=== PATIENT | male | born 1980 | race American Indian/Alaskan Native ===

== ENCOUNTER 2016-09-26 03:27 | Emergency (ER) | payer OTHER ==
[2016-09-26 04:29] LABS: Basophils % (Auto) 0.5 % (0.0-1.8); Eosinophils % (Auto) 1.3 % (0.0-4.3); Hematocrit 46.5 % (35.5-45.6); Hemoglobin 15.6 gm/dl (11.8-15.2); Mean Corpuscular HGB Conc 34 % (32-34); Mean Corpuscular Hemoglobin 31 pg (28-32); Mean Corpuscular Volume 92 fl (84-94); Platelet Count 350 K/mm3 (140-440); Red Blood Count 5.04 M/mm3 (3.65-5.03); Red Cell Distribution Width 13.2 % (13.2-15.2); White Blood Count 8.4 K/mm3 (4.5-11.0)
[2016-09-26 04:43] LABS: Anion Gap 21 mmol/L; BUN/Creatinine Ratio 28.46; Blood Urea Nitrogen 37 mg/dL (9-20); Carbon Dioxide 25 mmol/L (22-30); Chloride 95.6 mmol/L (98-107); Glucose 108 mg/dL (75-100); Potassium 4.7 mmol/L (3.6-5.0); Sodium 137 mmol/L (137-145)
[2016-09-26 12:07] LABS: Urine Drugs of Abuse Note Disclamer
[2016-09-26 12:20] LABS: Bilirubin,Urine NEG (Negative); Blood,Urine NEG (Negative); Ketones,Urine 20 mg/dL (Negative); Leukocyte Esterase,Urine NEG (Negative); Nitrite,Urine NEG (Negative); Protein,Urine <15 mg/dL mg/dL (Negative); Urobilinogen,Urine < 2.0 mg/dL (<2.0)
--- NOTE | 2016-09-26 14:47 | Emergency Department Report ---
ED Psych HPI - General Chief Complaint: Psych Stated Complaint: INSOMNIA/AMS Time Seen by Provider: 09/26/16 10:56 Source: patient, family Mode of arrival: Ambulatory - History of Present Illness Complaint: altered mental status -: Gradual, days(s) Associated Psychiatric Symptoms: racing thoughts, visual hallucinations, delusions, other (liane) History of same: No Quality: getting worse Improves With: none Worsens With: none Context: significant life stressor Associated Symptoms: insomnia. denies: confusion, headache, shortness of breath , nausea, vomiting, syncope Treatments Prior to Arrival: placed on mental he - Related Data Home Medications Medication Instructions Recorded Confirmed Last Taken No Known Home Medications [No 09/26/16 09/26/16 Unknown Reported Home Medications] Allergies Allergy/AdvReac Type Severity Reaction Status Date / Time No Known Allergies Allergy Verified 09/26/16 04:05 ED Review of Systems ROS: Stated complaint: INSOMNIA/AMS Other details as noted in HPI Other: GENERAL: No weight change, fatigue, weakness, fever, chills, or night sweats SKIN: No changes in skin or hair, no itching, no rashes, no jaundice HEAD: No trauma, headache, or visual changes EYES: No blurriness, tearing, itching, acute visual loss, conjunctival discoloration, or scleral icterus EARS: No hearing loss, tinnitus, vertigo, or earache NOSE: No rhinorrhea, stuffiness, sneezing, itching, or epistaxis MOUTH: No bleeding gums, hoarseness, sore throat, or swelling CARDIAC: No new murmur, chest pain, palpitations, dyspnea on exertion, orthopnea , PND, or edema RESPIRATORY: No shortness of breath, wheeze, cough, sputum production, hemoptysis, pneumonia, asthma, bronchitis, or emphysema GI: No change in appetite, nausea, vomiting, dysphagia, change in bowel frequency, diarrhea, constipation, bleeding, hematemesis, melena, hematochezia, or abdominal pain URINARY: No frequency, urgency, polyuria, dysuria, hematuria, or incontinence MUSCULOSKELETAL: No muscle weakness, joint stiffness, decrease in range of motion, redness, swelling, tenderness NEUROLOGIC: No loss of sensation, numbness, tingling, tremors, weakness, paralysis, seizures HEMATOLOGIC: No anemia, easy bruising, bleeding, petechiae, or purpura ENDOCRINE: No hot or cold intolerance, sweating, polyuria, polydipsia or, polyphagia no thyroid problems PSYCHIATRIC: Liane, paranoia, hallucinations visual ED Past Medical Hx - Past Medical History Previous Medical History?: Yes - Surgical History Past Surgical History?: No - Social History Smoking Status: Current Every Day Smoker Substance Use Type: None - Medications Home Medications: Home Medications Medication Instructions Recorded Confirmed Last Taken Type No Known Home Medications [No 09/26/16 09/26/16 Unknown History Reported Home Medications] ED Physical Exam - General Limitations: No Limitations - Other Other exam information: GENERAL: Patient in no acute distress HEAD: Normocephalic, atraumatic EYES: PERRLA, EOM intact, no scleral icterus, no conjunctival hemorrhage, visual jain and acuity wnl, NOSE: No tenderness, discharge, sinus tenderness MOUTH: No erythema, bleeding, exudate HEART: Regular rate and rhythm, no murmur, S1-S2 are auscultated, pulses are symmetric LUNGS: No wheezing, rales, rhonchi, bilateral breath sounds ABDOMEN: Normal bowel sounds, no tenderness, no rebound, no guarding, no masses , no CVA tenderness MUSCULOSKELETAL: Normal joint range of motion, no redness, no swelling, no tenderness NEUROLOGIC: GCS 15, Alert and Oriented x3, Cranial nerves intact, normal sensation, normal strength, normal gait, no cerebellar deficit PSYCHIATRIC: No homicidal or suicidal ideation, no hallucinations SKIN: Skin is warm and dry, no wounds, no rashes ED Course Vital Signs 09/26/16 09/26/16 04:00 11:14 Temperature 98.3 F 98 F Pulse Rate 90 91 H Respiratory 20 18 Rate Blood Pressure 138/104 Blood Pressure 112/74 [Left] O2 Sat by Pulse 100 98 Oximetry ED Medical Decision Making - Lab Data Result diagrams: 09/26/16 04:09 09/26/16 04:09 - Medical Decision Making Mental health counselor request 1013 and plan transfer for acute psychosis Patient medically clear Critical care attestation.: If time is entered above; I have spent that time in minutes in the direct care of this critically ill patient, excluding procedure time. ED Disposition Clinical Impression: Acute psychosis, Paranoia (psychosis) Disposition: [id number] ANOTHER TYPE HLTHCARE Is pt being admited?: No Condition: Stable Referrals: PRIMARY CARE, [Primary Care Provider] - 3-5 Days Time of Disposition: 14:46
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
[2016-09-26] MEDS ORDERED: RisperDAL PO SCH (22:00)
--- NOTE | 2016-09-27 11:02 | Progress Note ---
Subjective - Reason for Consult Consult date: 09/27/16 Reason for consult: Psychiatry Follow-up - Chief Complaint Chief complaint: "What happened" 36 year old black male seen in the ER for psychiatric evaluation. His brought him shortly after he was incarcerated for trespassing. Today patient is calm and cooperative during the assessment. He stated that he did not sleep for 4 days when he has in [facility] ([facility]). Per his girlfriend Imani Randall, his behavior was bizarre when she picked him from [facility] so she brought him to [facility]. She stated the day prior, patient was paranoid about her whereabouts. The patient denies any psy hx or fam psy hx. His girlfriend confirms what the patient stated about having a psy hx. He denies SI/HI's, AVH's, and depression symptoms. He stated that he slept well last night. Patient is concern about his relationship with his girlfriend. Mental Status Exam - Vital signs Last Vital Signs Temp 98.2 F 09/26/16 21:30 Pulse 68 09/26/16 21:30 Resp 20 09/27/16 07:05 BP 127/68 09/26/16 21:30 Pulse Ox 100 09/27/16 07:05 - Exam Narrative exam: MSE: Appearance: calm, cooperative Behavior: good eye contact Speech: regular rate and tone Mood: "okay" Affect: congruent to mood Thought Process: linear Thought Content: denies SI/HI's and AVH's Motor Activity: ambulatory Cognition: A/Ox3 Insight: fair Judgment: fair Assessment and Plan Impression: Psychosis unspecified, substance induced. Today patient is calm and cooperative during the assessment. He stated that he did not sleep for 4 days when he has in [facility] ([facility]). Per his girlfriend Imani Randall, his behavior was bizarre when she picked him from [facility] so she brought him to [facility]. Patient is no threat to self. Positive for amphetamines and marijuana. Psychosis has resolved. Patient is no threat to self. Recommendation/Plan: Rescind 1013. Family Counseling information given to patient and girlfriend for their local area.
[2016-09-27 11:44] VITALS: BP 123/78
== END 2016-09-27 14:42 | disposition other institution (70) ==
LOC: EDSEX → ED 03:27
DX: F22 Delusional disorders (principal); F17.210 Nicotine dependence, cigarettes, uncomplicated
CPT/HCPCS: 36415; 80048; 80307; 81001; 85025; 99284; G0480; 80320